=== PATIENT | female | born 1995 | race African-American/Black ===

== ENCOUNTER 2017-05-27 12:20 | Emergency (ER) | payer OTHER, SELFPAY ==
[2017-05-27] MEDS ORDERED: Oxymetazoline HCl 0.05% ( 15 ML ) ONE (12:32)
[2017-05-27 13:30] LABS: #Eosinphils 0.1 thou/uL (0.0-0.7); #Lymphocytes 1.8 thou/uL (1.20-3.40); #Monocytes 0.6 thou/uL (0.11-0.59); #Neutrophils 6.8 thou/uL (1.40-6.50); %Basophils 0.1 % (0.0-1.0); %Eosinophils 0.7 % (0.0-10.0); %Lymphocytes 19.4 % (28.0-48.0); %Monocytes 5.9 % (0.0-4.0); %Neutrophils 73.8 % (31.0-61.0); Hemoglobin 11.6 g/dL (12.0-16.0); Mean Corpuscular Volume 88.2 fl (77.0-87.0); Mean Platelet Volume 7.7 fL (7.4-10.4); Platelet Count 234 thou/uL (130-400); RBC Distribution Width 13.4 % (11.5-14.5); Red Blood Cell (RBC) Count 3.87 mill/uL (4.00-5.20); White Blood Cell (WBC) Count 9.2 thou/uL (4.8-10.8)
[2017-05-27 13:56] LABS: Bilirubin Negative (Negative); Blood, Urine Negative (Negative); Clarity CLOUDY (Clear); Glucose, Urine (Dipstick) Negative (Negative); Leukocyte Moderate (Negative); Nitrite Negative (Negative); Protein, Urine (Dipstick) Negative (Neg-Trace); Specific Gravity, Urine 1.016 (1.002-1.036); pH, Urine 7.5 (5.0-9.0)
[2017-05-27 13:58] LABS: ALT (SGPT) 20 U/L (8-55); AST (SGOT) 17 U/L (5-34); Albumin 3.3 g/dL (3.5-5.0); Alkaline Phosphatase 104 U/L (40-150); Anion Gap 10 mmol/L (10-20); BUN (Urea Nitrogen) 7 mg/dL (7.0-18.7); Bilirubin, Total 0.3 mg/dL (0.2-1.2); Calc. Creatinine Clearance 0 mL/min (70-130); Calcium 8.9 mg/dL (7.8-10.44); Carbon Dioxide 22 mmol/L (22-29); Chloride 105 mmol/L (98-107); Estimated GFR-MDRD Greater than 90; Globulin 3.4 g/dL (2.4-3.5); Glucose 88 mg/dL (70-105); Potassium 3.9 mmol/L (3.5-5.1); Protein, Total 6.7 g/dL (6.0-8.3); Sodium 133 mmol/L (136-145)
[2017-05-27 14:09] LABS: Bacteria/HPF 2+ HPF (None Seen); Hyaline Casts/LPF 0-3 HYALINE CAST LPF (0-3 Hyaline); Pathc Cast-AUWi Flag 0.29 (0-2.49); RBC/HPF 0-3 HPF (0-3); Squamous Epithelial 21-50 HPF (0-3)
[2017-05-27] MEDS ORDERED: levETIRAcetam 500 MG TAB PO SCH (15:00)
== END 2017-05-27 15:21 | disposition home or self-care (01) ==
LOC: ERS 12:20
DX: O99.352 Diseases of the nervous system complicating pregnancy, second trimester (principal); G40.909 Epilepsy, unspecified, not intractable, without status epilepticus; R82.71 Bacteriuria; O99.512 Diseases of the respiratory system complicating pregnancy, second trimester; J45.909 Unspecified asthma, uncomplicated; O99.342 Other mental disorders complicating pregnancy, second trimester; F41.9 Anxiety disorder, unspecified; Z3A.23 23 weeks gestation of pregnancy
CPT/HCPCS: 36415; 80053; 81003; 81015; 85025; 87086; 93005

== ENCOUNTER 2017-07-19 10:54 | Day surgery (SDC) | payer OTHER ==
[2017-07-19 11:36] VITALS: BMI 35.2
[2017-07-19 12:35] LABS: Bilirubin Negative (Negative); Blood, Urine Negative (Negative); Clarity CLEAR (Clear); Glucose, Urine (Dipstick) Negative (Negative); Leukocyte Trace (Negative); Nitrite Negative (Negative); Protein, Urine (Dipstick) 300 mg/dL (Neg-Trace); Specific Gravity, Urine 1.019 (1.002-1.036); pH, Urine 6.5 (5.0-9.0)
[2017-07-19 12:38] LABS: Bacteria/HPF None Seen HPF (None Seen); Pathc Cast-AUWi Flag 1.88 (0-2.49); RBC/HPF 0-3 HPF (0-3)
[2017-07-19 12:50] LABS: Hyaline Casts/LPF 0-3 HYALINE CAST LPF (0-3 Hyaline); Renal Epithelial None Seen HPF (0-3); Transitional Epithelial NONE SEEN HPF (0-3)
--- NOTE | 2017-07-19 19:20 | PRG ---
DATE OF SERVICE: 07/19/2017 OBSTETRIC EMERGENCY ROOM ENCOUNTER PRIMARY CONCESSION CASHIER: Lei Norton M.D. CHIEF COMPLAINT: Abdominal pains, nausea, vomiting, diarrhea. HISTORY OF PRESENT ILLNESS: The patient is a 21-year-old female with an intrauterine at 31 weeks and 2 days, followed by Dr. Norton who presented by EMS from her employment with abdomin al pains that she had been feeling since midnight along with upper thigh pain and lower back pain. T he patient reports that she also has been experiencing much of this pain she has been experiencing is associated with movement and activity and says that she has been feeling tightening in her belly and in her back about once every 20-30 minutes at work, she felt a really strong pain which prompted her to come. The patient reports that she has been having leakage of fluid off and on, it is clear. Fi rst, she thought it was from her bladder. She denies any vaginal bleeding. She denies any unusual d ischarge apart from the leaking fluid that she says as scant and small amounts. She feels her baby m oving. She reports that yesterday that she had 3 episodes of diarrhea and vomited after she ate some thing and has since done fine without any continued episodes. The patient denies chest pain, shortne ss of breath, heartburn, dizziness, visual disturbances, epigastric pain, or dysuria or other urinary problems. The patient denies any seizure activity since her last ER visit in May. She reports th at she does not take her Keppra on a regular basis. In fact, she reports that she has not seen a ap rologist yet. Her primary OB had referred her to Dr. Chatterjee's office. The patient has a longstandi ng history of epilepsy. The patient reports good movement. PAST MEDICAL HISTORY: 1. Seizure disorder since age 17. 2. Anxiety. PAST SURGICAL HISTORY: Negative. SOCIAL HISTORY: Denies drug, alcohol or tobacco use. CURRENT MEDICATIONS: Keppra p.r.n. and vitamins. ALLERGIES: No known drug allergies. OBSTETRIC LABORATORY DATA: Unavailable. REVIEW OF SYSTEMS: Per HPI. PHYSICAL EXAMINATION: VITAL SIGNS: Blood pressure 125/85, pulse of 69, respiratory rate 18, temperature 99.0. GENERAL: She appears to be in no acute distress. She is alert and oriented, cooperative and pleasan t to interact with. HEENT: Normocephalic, atraumatic. CHEST: Clear to auscultation bilaterally. HEART: Regular rate and rhythm. ABDOMEN: Obese and gravid, soft. She does have some tenderness with deviation of the uterus, partic ularly on the left side, has no suprapubic tenderness. She has some SI joint tenderness to palpation , possible CVA tenderness, but appears to be more on the SI joint region. The patient has symmetrica l 1+ edema bilaterally. PELVIC: Vulva is without masses, lesions or erythema. Vagina is moist with a thick adherent vaginal discharge. Otherwise, no lesions. Cervix on digital exam is closed and thick. LABORATORY DATA: RN CHEMICAL DEPENDENCY-3 was positive for Izabel, negative for trich or Gardnerella. A UA is signific ant with a 300 mg per deciliter protein, otherwise no other evidence of abnormalities. No nitrites, has trace leukocyte esterase, but multiple squames. heart tracing demonstrates a baseline in t he 140s with moderate long-term variability, positive 10/10 accelerations. Bedside ultrasound shows an BETSY of about 10 cm. ASSESSMENT AND PLAN: The patient has an intrauterine at 31 weeks and 2 days, presenting wi th primarily musculoskeletal pains and newly diagnosed proteinuria and a yeast infection. The patien t has been given a script for Diflucan 150 mg to be taken 1 now and 1 in the week. She has also been given instructions on how to collect a 24-hour urine for protein. She has been counseled to take tw o Tylenol 3 times a day for the next several days to see if this will help with her musculoskeletal p ains. She is following with Dr. Norton later this afternoon. I have contacted him myself to inform him of this 24-hour urine collection.
== END 2017-07-19 13:55 | disposition home or self-care (01) ==
LOC: L&D/OP 10:54
PROVIDERS: ATTEND Obstetrics & Gynecology
DX: O99.89 Other specified diseases and conditions complicating pregnancy, childbirth and the puerperium (principal); R10.9 Unspecified abdominal pain; M54.5 Low back pain; M79.659 Pain in unspecified thigh; N89.8 Other specified noninflammatory disorders of vagina; R19.7 Diarrhea, unspecified; O99.353 Diseases of the nervous system complicating pregnancy, third trimester; G40.909 Epilepsy, unspecified, not intractable, without status epilepticus; O99.343 Other mental disorders complicating pregnancy, third trimester; F41.9 Anxiety disorder, unspecified; O98.813 Other maternal infectious and parasitic diseases complicating pregnancy, third trimester; B37.9 Candidiasis, unspecified; O12.13 Gestational proteinuria, third trimester; Z3A.31 31 weeks gestation of pregnancy; Z79.899 Other long term (current) drug therapy
CPT/HCPCS: 51701; 76815; 81003; 81015; 87480; 87510; 87660; 99285; A4353

== ENCOUNTER 2018-07-07 00:37 | Emergency (ER) | payer OTHER, SELFPAY ==
[2018-07-07 00:59] LABS: Bilirubin Negative (Negative); Blood, Urine Negative (Negative); Clarity CLEAR (Clear); Glucose, Urine (Dipstick) Negative (Negative); Leukocyte Negative (Negative); Nitrite Negative (Negative); Pregnancy Test - Urine (BHCG) POSITIVE (Negative); Protein, Urine (Dipstick) Negative (Neg-Trace); pH, Urine 6.5 (5.0-9.0)
[2018-07-07 01:00] LABS: Pregu Control Background? CLEAR/WHITE (CLR/WHITE); Pregu Control Bar Appear? YES (CONTROL BAR)
[2018-07-07 01:01] LABS: #Monocytes 0.7 thou/uL (0.11-0.59); %Basophils 0.5 % (0.0-1.0); %Eosinophils 0.4 % (0.0-10.0); %Lymphocytes 30.5 % (21.0-51.0); %Monocytes 6.9 % (0.0-10.0); %Neutrophils 61.7 % (42.0-75.0); Hemoglobin 9.2 g/dL (12.0-16.0); Mean Corpuscular HGB CONC 32.5 g/dL (32.0-36.0); Mean Corpuscular Hemoglobin 25.3 pg (27.0-31.0); Mean Corpuscular Volume 77.8 fL (78.0-98.0); Mean Platelet Volume 8.5 fL (7.4-10.4); Platelet Count 321 thou/uL (130-400); RBC Distribution Width 18.1 % (11.5-14.5); Red Blood Cell (RBC) Count 3.63 mill/uL (4.20-5.40); White Blood Cell (WBC) Count 9.8 thou/uL (4.8-10.8)
[2018-07-07 01:21] LABS: ALT (SGPT) 14 U/L (8-55); AST (SGOT) 11 U/L (5-34); Albumin 3.8 g/dL (3.5-5.0); Alkaline Phosphatase 72 U/L (40-150); Anion Gap 12 mmol/L (10-20); BUN (Urea Nitrogen) 9 mg/dL (7.0-18.7); Bilirubin, Total 0.2 mg/dL (0.2-1.2); Calc. Creatinine Clearance 0 mL/min (70-130); Calcium 9.3 mg/dL (7.8-10.44); Carbon Dioxide 24 mmol/L (22-29); Chloride 107 mmol/L (98-107); Estimated GFR-MDRD Greater than 90; Globulin 3.1 g/dL (2.4-3.5); Glucose 92 mg/dL (70-105); Potassium 3.8 mmol/L (3.5-5.1); Protein, Total 6.9 g/dL (6.0-8.3); Sodium 139 mmol/L (136-145)
--- NOTE | 2018-07-07 07:09 | ULT ---
ULTRASOUND PELVIS TRANSVAGINAL WITH DOPPLER: Date: 07/07/18 INDICATION: , assess status. COMPARISON: None. TECHNIQUE: Hay scale, color flow, and spectral Doppler were obtained of the pelvis via transvaginal and transab dominal approach. FINDINGS: There is a single intrauterine gestational sac with a mean sac diameter of 0.54 cm. There is a pole demonstrated with crown-rump length of 2.6 mm. No definite cardiac activity is noted. The average gestational age by ultrasound is 5 weeks/4 days. Estimated due date is 03/05/2019. Yolk s ac measures 1.9 mm. There bilateral mildly complex cysts. The right ovary measures 4.6 x 4.1 x 5.8 cm. The left ovary zoila sures 3.2 x 1.5 x 3.0 cm. The uterus measures 8.3 x 5.0 x 5.8 cm. There is mild free fluid in the pel vis. IMPRESSION: 1. Single intrauterine gestation sac with a yolk sac and pole identified. No cardiac activity is evident. Findings are most consistent with an early on undetermined viability. 2. Mild free fluid in the pelvis. 3. Mildly complex bilateral ovarian cysts. POS: [facility]
== END 2018-07-07 05:09 | disposition home or self-care (01) ==
LOC: ERS 00:37
DX: O99.89 Other specified diseases and conditions complicating pregnancy, childbirth and the puerperium (principal); R10.30 Lower abdominal pain, unspecified; O34.81 Maternal care for other abnormalities of pelvic organs, first trimester; N83.202 Unspecified ovarian cyst, left side; N83.201 Unspecified ovarian cyst, right side; O99.341 Other mental disorders complicating pregnancy, first trimester; F41.9 Anxiety disorder, unspecified; O99.351 Diseases of the nervous system complicating pregnancy, first trimester; G40.909 Epilepsy, unspecified, not intractable, without status epilepticus; Z79.899 Other long term (current) drug therapy; Z3A.01 Less than 8 weeks gestation of pregnancy
CPT/HCPCS: 36415; 76856; 80053; 81003; 81025; 83690; 84702; 85025; 86900; 86901

== ENCOUNTER 2019-02-06 17:22 | Day surgery (SDC) | payer OTHER ==
[2019-02-06 17:36] VITALS: BMI 37.8
[2019-02-06] MEDS ORDERED: FLU VACC QS2019-20(6MOS UP)/PF 60 MCG/0.5 ML SYRINGE IM ONE (17:40)
[2019-02-06] MEDS ORDERED: hydrALAZINE 20 MG/ML VIAL SLOW IVP PRN (18:06)
[2019-02-06] MEDS ORDERED: Ondansetron PF 4 MG/2 ML Vial IVP SCH (18:15)
[2019-02-06] MEDS: Sodium Chloride 0.9% 2,000 ML IV SCH ×2 (18:32→20:01)
[2019-02-06 18:54] LABS: Anion Gap 8 mmol/L (10-20); BUN (Urea Nitrogen) 4 mg/dL (7.0-18.7); Calc. Creatinine Clearance 186 mL/min (70-130); Calcium 8.5 mg/dL (7.8-10.44); Carbon Dioxide 25 mmol/L (22-29); Chloride 108 mmol/L (98-107); Estimated GFR-MDRD Greater than 90; Glucose 82 mg/dL (70-105); Sodium 137 mmol/L (136-145)
--- NOTE | 2019-02-06 18:56 | PRG ---
DATE OF SERVICE: 02/06/2019 PRIMARY OB: Dr. Lei Norton. CHIEF COMPLAINT: Abdominal pain. HISTORY OF PRESENT ILLNESS: The patient is a 23-year-old G2, P1 female with an intrauterine at 36 weeks and a day, presenting to Labor and Delivery with complaints of uterine contractions since about 3:30 today. The patient reports she has had a several-day history of diarrhea and vomiting. She has not been able to keep anything down. She says she has about 4 or 5 episodes of each day. The patient reports today she has only had one episode of diarrhea so far. She denies any fever. She does report headaches. Denies chest pain. She reports some shortness of breath. Denies diarrhea, vomiting, or nausea. Denies any new rashes. Reports hip problems, . Denies any muscle weakness. Denies vaginal bleeding or leakage of fluid or urinary urgency. The patient reports she is scheduled for repeat on the 26 of February. PAST MEDICAL HISTORY: History of epilepsy, off medication. PAST SURGICAL HISTORY: One prior . ALLERGIES: NO KNOWN DRUG ALLERGIES. MEDICATIONS: vitamins. SOCIAL HISTORY: Denies drug, alcohol, or tobacco use. OB LABS: Blood type is B positive. Antibody screen is negative. Hepatitis B surface antigen is nonreactive in the first trimester. HIV nonreactive in the first trimester, but Chlamydia positive in the first trimester. Gonorrhea negative. Diabetes screen of 97. I do not have her third trimester labs or her followup test to cure for the Chlamydia. REVIEW OF SYSTEMS: Per HPI. PHYSICAL EXAMINATION: VITAL SIGNS: Blood pressure is 98/63, heart rate of 92, respiratory rate 16, and temperature 98.5. GENERAL: She appears to be in no acute distress. She is alert, oriented, cooperative, and pleasant to interact with. HEENT: Head is normocephalic, atraumatic. LUNGS: Clear to auscultation bilaterally. HEART: Has regular rate and rhythm. ABDOMEN: Soft, gravid, obese. Nontender. EXTREMITIES: Nontender, nonedematous. CERVICAL: She has one thick and high. heart tracing shows the fetus shows a baseline in the 140s with moderate long-term variability, positive 15 x 15 accelerations. Contractions appear to be about every 2 to 6 minutes. LABORATORY DATA: BMP is pending. IV is in place. ASSESSMENT AND PLAN: The patient is a 23-year-old G2, P1 female with an intrauterine at 36 weeks and a day, coming in with what by history sounds like nausea and vomiting, felt maybe a gastroenteritis, followed by resulting in dehydration and contractions and headache, will be given the patient IV fluids. Get a BMP, and we will re-evaluate. Should the patient be in labor, which at the moment does not appear to be the case. Plan will be a repeat . We will follow up with labs and as indicated. Job ID: [id number]
== END 2019-02-06 21:02 | disposition home or self-care (01) ==
LOC: L&D/OP 17:22
PROVIDERS: ATTEND Obstetrics & Gynecology
DX: O47.03 False labor before 37 completed weeks of gestation, third trimester (principal); O99.89 Other specified diseases and conditions complicating pregnancy, childbirth and the puerperium; R19.7 Diarrhea, unspecified; R51 Headache; O99.283 Endocrine, nutritional and metabolic diseases complicating pregnancy, third trimester; E86.0 Dehydration; O21.2 Late vomiting of pregnancy; Z3A.36 36 weeks gestation of pregnancy
CPT/HCPCS: 36415; 80048; J2405

== ENCOUNTER 2019-02-13 22:04 | Day surgery (SDC) | payer OTHER ==
[2019-02-13 22:42] VITALS: BMI 39.0
[2019-02-13 22:43] VITALS: BP 113/76
[2019-02-13 22:43] LABS: Amnisure Internal Control QC ACCEPTABLE (ACCEPTABLE)
[2019-02-13 22:52] LABS: Amnisure Test No Membranes Rupture (No Rupture)
[2019-02-13] MEDS ORDERED: hydrALAZINE 20 MG/ML VIAL SLOW IVP PRN (23:02)
[2019-02-13] MEDS ORDERED: Promethazine HCl 25 MG/ML VIAL IM/IV PRN (23:04)
[2019-02-13] MEDS ORDERED: Lactated Ringer's 1,000 ML IV SCH (23:15)
--- NOTE | 2019-02-13 23:38 | PRG ---
DATE OF SERVICE: 02/13/2019 TIME OF SERVICE: 2305. PRESENTING COMPLAINTS: Nausea, vomiting, possible rupture of membranes and contractions at 37 weeks gestation. HISTORY OF PRESENT ILLNESS: Ms. Wu is a 23-year-old, G2, P1, EDC 03/05, scheduled repeat 02/26, who sees Dr. Norton. She reports this afternoon. She has had some nausea and vomiting. She also reports possible leakage of fluid and contractions. 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 No evidence of preeclampsia in this . Blood type B positive, antibody negative. Pap negative. Rubella immune. VDRL nonreactive. Hepatitis B, GC, chlamydia negative. Group B strep reflected is negative in Dr. Norton's record. The patient had positive chlamydia in July and it was treated with Zithromax. PAST MEDICAL HISTORY: None. PAST SURGICAL HISTORY: . ALLERGIES: DENIES. MEDICATIONS: vitamins. SOCIAL HISTORY: Denies tobacco, alcohol, or IV drug use. FAMILY HISTORY: Noncontributory. REVIEW OF SYSTEMS: Noncontributory. PHYSICAL EXAMINATION: VITAL SIGNS: Black female, blood pressure 128/72, pulse 85, respirations 18, afebrile. HEENT: Within normal limits. LUNGS: Auscultation bilaterally. HEART: Regular rate and rhythm. ABDOMEN: Soft, nontender. She has occasional indentible contractions, category 1 heart rate tracing baseline 130s. Vaginal exam revealed no pooling fluid. Cervix was one, long and high. EXTREMITIES: No clubbing, cyanosis, or edema. AmniSure was performed and was negative. The patient seemed to tolerate a p.o. hydration. Decision was made to bolus LR and administer Phenergan. We will do straight cath urinalysis with possible reflex, micro, and evaluate the results. Anticipate that after 1 to 2 L of IV fluids, the patient will be okay for discharge home, but we will dictate addendum. Job ID: [id number]
[2019-02-13 23:48] LABS: Bacteria/HPF None Seen HPF (None Seen); Bilirubin Negative (Negative); Blood, Urine Negative (Negative); Clarity Clear (Clear); Glucose, Urine (Dipstick) Normal (Negative); Leukocyte Negative Leu/uL (Negative); Nitrite Negative (Negative); Protein, Urine (Dipstick) Negative (Neg-Trace); RBC/HPF 0-3 HPF (0-3); Squamous Epithelial 0-3 HPF (0-3); Urobilinogen Normal mg/dL (Less than 2); WBC/HPF 0-3 HPF (0-3)
[2019-02-13 23:50] LABS: Urine Culture Reflex No No
[2019-02-14] MEDS ORDERED: Lactated Ringer's 1,000 ML IV SCH (00:15)
--- NOTE | 2019-02-14 02:32 | PRG ---
DATE OF SERVICE: 02/14/2019 Ms. Wu has been observed for greater than 2 hours. She has no contractions. She feels better. Urinalysis revealed negative ketones and was completely unremarkable. heart rate tracing has been unremarkable as well. IMPRESSION: Discomforts, prior section, early third trimester, no evidence active labor. PLAN: Discharge home, keep scheduled, followup with Dr. Norton, ER precautions. Job ID: [id number]
[2019-02-14] MEDS ORDERED: FLU VACC QS2019-20(6MOS UP)/PF 60 MCG/0.5 ML SYRINGE IM ONE (09:00)
== END 2019-02-14 02:22 | disposition home or self-care (01) ==
LOC: L&D/OP 22:04
PROVIDERS: ATTEND Obstetrics & Gynecology
DX: O47.1 False labor at or after 37 completed weeks of gestation (principal); O21.2 Late vomiting of pregnancy; O26.893 Other specified pregnancy related conditions, third trimester; N89.8 Other specified noninflammatory disorders of vagina; O34.219 Maternal care for unspecified type scar from previous cesarean delivery; Z3A.37 37 weeks gestation of pregnancy
CPT/HCPCS: 81001; 84112; A4353; J2550

== ENCOUNTER 2019-02-26 03:02 | Inpatient (IN) | payer OTHER ==
--- NOTE | 2019-02-25 22:10 | PDOC.LDHP ---
Labor and Delivery H&P HPI: 23 y/o at 39 weeks presents for scheduled 2nd (repeat) . Due date: 03/05/19 Grav: 2 Para: 1 Current complications: other (Obsesity) Abnormal US findings: No Current medications: pre-elda vitamins Previous surgical history: low tranverse CS Allergies/Adverse Reactions: Allergies Allergy/AdvReac Type Severity Reaction Status Date / Time No Known Allergies Allergy Verified 02/13/19 22:41 Social history: none - Physical Exam Vital signs reviewed and normal: yes General: NAD Heart: RRR Lungs: CTAB Abdomen: gravid Extremeties: no edema FHT: category 1 - Assessment L&D Assessment: scheduled repeat section - Plan Plan: admit to L&D, to OR for section
[~2019-02-26 03:02] MED LIST: Bicitra 30 ML UDCUP PO SCH; Ondansetron PF 4 MG/2 ML Vial IVP PRN; Promethazine HCl 25 MG/ML VIAL IM PRN; hydrALAZINE 20 MG/ML VIAL SLOW IVP PRN
[2019-02-26] MEDS: Lactated Ringer's 1,000 ML IV SCH ×4 (11:35→22:33)
[2019-02-26 11:49] VITALS: BMI 38.5
[2019-02-26] MEDS ORDERED: Bicitra 30 ML UDCUP ONE (11:57)
[2019-02-26] MEDS ORDERED: CEFAZOLIN 2 GM in Premix Bag 1 BAG IVPB SCH (12:00)
[2019-02-26] MEDS ORDERED: Oxytocin 10 UNITS/ML VIAL ONE (12:18)
[2019-02-26] MEDS ORDERED: PHENYLEPHRINE-NS 100 MCG/ML 10 ML SYRINGE ONE (12:18)
[2019-02-26] MEDS ORDERED: MORPHINE 5 MG/10 ML PF VIAL ONE (12:18)
[2019-02-26 12:19] LABS: Hemoglobin 8.2 g/dL (12.0-16.0); Mean Corpuscular HGB CONC 31.8 g/dL (32.0-36.0); Mean Corpuscular Hemoglobin 22.3 pg (27.0-31.0); Mean Corpuscular Volume 70.1 fL (78.0-98.0); Platelet Count 342 thou/uL (130-400); RBC Distribution Width 17.5 % (11.5-14.5); Red Blood Cell (RBC) Count 3.66 mill/uL (4.20-5.40); White Blood Cell (WBC) Count 10.3 thou/uL (4.8-10.8)
[2019-02-26 12:48] LABS: HBSAg Index 0.33 S/CO (0-0.99); Hep B Surf Ag Non-Reactive S/CO (NonReactive)
[2019-02-26 12:50] LABS: Syphilis Antibody Nonreactive (Nonreactive); Syphilis Antibody Index 0.04 S/CO (<1.00 Non-Reactive)
[2019-02-26] MEDS ORDERED: HYDROmorphone 2 MG/ML VIAL SLOW IVP PRN (12:53)
[2019-02-26] MEDS ORDERED: L&D-Morphine 4 MG/ML VIAL SLOW IVP PRN (12:53)
[2019-02-26] MEDS ORDERED: Meperidine HCl/PF 25 MG/ML VIAL SLOW IVP PRN (12:53)
[2019-02-26] MEDS ORDERED: Ondansetron HCl/PF 4 MG/2 ML Vial IVP PRN (12:53)
[2019-02-26] MEDS ORDERED: diphenhydrAMINE 50 MG/ML VIAL IVP PRN (12:54)
[2019-02-26] MEDS ORDERED: Naloxone HCl 0.4 mg/ml Vial IVP PRN ×2 (12:54)
[2019-02-26] MEDS ORDERED: Ondansetron PF 4 MG/2 ML Vial IVP PRN ×3 (12:54→17:49)
[2019-02-26] MEDS ORDERED: Promethazine HCl 25 MG SUPP PR PRN (12:54)
[2019-02-26] MEDS ORDERED: Promethazine HCl 25 MG/ML VIAL IM PRN ×2 (12:54→14:09)
[2019-02-26] MEDS ORDERED: Naloxone HCl 0.4 mg/ml Vial IV PRN ×2 (12:54→14:09)
[2019-02-26] MEDS ORDERED: Ketorolac Tromethamine 30 MG/ML VIAL IVP PRN (12:54)
[2019-02-26] MEDS ORDERED: Ketorolac Tromethamine 30 MG/ML VIAL IVP SCH (13:00)
[2019-02-26] MEDS ORDERED: FLU VACC QS2019-20(6MOS UP)/PF 60 MCG/0.5 ML SYRINGE IM ONE (13:00)
[2019-02-26] MEDS ORDERED: Communication Order-Pharmacy FS SCH ×2 (13:00→14:15)
[2019-02-26] MEDS ORDERED: Lidocaine 1% (PF) 30 ML VIAL ONE (13:14)
[2019-02-26] MEDS ORDERED: Succinylcholine Chloride 20 MG/ML 10 ml SYRINGE FS ONE (13:41)
[2019-02-26] MEDS ORDERED: Fentanyl 250 MCG/5 ML VIAL ONE (13:41)
[2019-02-26] MEDS ORDERED: PROPOFOL 20 ML ONE ×2 (13:41→14:18)
[2019-02-26] MEDS ORDERED: Zolpidem Tartrate 5 MG TAB PO PRN ×2 (14:09→17:49)
[2019-02-26] MEDS ORDERED: diphenhydrAMINE 25 MG CAP PO PRN ×2 (14:09→17:49)
[2019-02-26] MEDS ORDERED: fentaNYL Citrate/PF 2,000 MCG in Sodium Chloride 0.9% 60 ML IV PRN (14:09)
[2019-02-26] MEDS ORDERED: diphenhydrAMINE 50 MG/ML VIAL IM PRN (14:09)
[2019-02-26] MEDS ORDERED: Dexamethasone 4 mg/ml Vial ONE (14:14)
[2019-02-26] MEDS ORDERED: Ketorolac Tromethamine 30 MG/ML VIAL ONE (14:14)
[2019-02-26] MEDS ORDERED: Ondansetron PF 4 MG/2 ML Vial ONE (14:14)
[2019-02-26] MEDS ORDERED: diphenhydrAMINE 50 MG/ML VIAL ONE (17:15)
[2019-02-26] MEDS: diphenhydrAMINE 50 MG/ML VIAL IVP PRN (17:20)
[2019-02-26] MEDS ORDERED: hydrALAZINE 20 MG/ML VIAL SLOW IVP PRN (17:49)
[2019-02-26] MEDS ORDERED: Lanolin Ointment 7 GM TUBE TOP PRN (17:49)
[2019-02-26] MEDS ORDERED: HYDROcodone/Acetaminophen 5/325 mg Tablet PO PRN (17:49)
[2019-02-26] MEDS ORDERED: Methylergonovine 0.2 MG/ML VIAL IM PRN (17:49)
[2019-02-26] MEDS ORDERED: Bisacodyl 10 MG SUPP PR PRN (17:49)
[2019-02-26] MEDS ORDERED: NS / Oxytocin 40 units/1000ml 1,000 ML IV SCH (17:49)
[2019-02-26] MEDS: Docusate Calcium (SURFAK) 240 MG CAP PO SCH (22:34)
[2019-02-26] MEDS: Simethicone Chewable 80 MG TAB PO PRN (22:34)
[2019-02-27] MEDS: diphenhydrAMINE 50 MG/ML VIAL IVP PRN (01:03)
[2019-02-27] MEDS ORDERED: Measles/Mumps/Rubella 10 MCG/0.5 ML VIAL SC ONE (09:00)
[2019-02-27] MEDS ORDERED: Varicella virus, LIVE 0.5 ML VIAL SC ONE (09:00)
[2019-02-27] MEDS ORDERED: Adacel (T-DAP) 0.5 ML SYRINGE IM ONE (09:00)
[2019-02-27] MEDS: Docusate Calcium (SURFAK) 240 MG CAP PO SCH ×2 (09:24→22:15)
[2019-02-27] MEDS: Prenatal Vitamin 1 TAB PO SCH (09:24)
[2019-02-27] MEDS: Simethicone Chewable 80 MG TAB PO PRN (09:25)
[2019-02-27] MEDS: HYDROcodone/Acetaminophen 5/325 mg Tablet PO PRN (19:33)
[2019-02-27] MEDS: Ibuprofen 800 MG TAB PO SCH (22:16)
[2019-02-28] MEDS: Ibuprofen 800 MG TAB PO SCH ×3 (00:03→21:37)
[2019-02-28] MEDS: Docusate Calcium (SURFAK) 240 MG CAP PO SCH ×3 (00:03→21:37)
[2019-02-28] MEDS: Simethicone Chewable 80 MG TAB PO PRN ×2 (00:04→20:33)
[2019-02-28] MEDS: Prenatal Vitamin 1 TAB PO SCH (09:31)
[2019-02-28] MEDS: HYDROcodone/Acetaminophen 5/325 mg Tablet PO PRN (20:32)
--- NOTE | 2019-03-01 01:52 | OP ---
DATE OF PROCEDURE: 02/26/2019 TIME: 1356 Central Standard Time. PREOPERATIVE DIAGNOSIS: Intrauterine at 39 weeks with a history of preeclampsia and desired repeat section. POSTOPERATIVE DIAGNOSIS: Intrauterine at 39 weeks with a history of preeclampsia and desired repeat section. PROCEDURE PERFORMED: Repeat low transverse section. ANESTHESIA: General after the failure of spinal placement. ANESTHESIOLOGIST: Antoni Sharma MD FINDINGS: Viable male weighing 2948 g or 6 pounds 8 ounces, Apgars 8 and 9. ESTIMATED BLOOD LOSS: 700 mL. COMPLICATIONS: None. DETAILS OF THE PROCEDURE: The patient was consented and taken back to the operating room where spinal anesthesia was found to be adequate. She was then prepped and draped in the normal sterile fashion. A timeout was performed by the entire operative team. The incision was then marked with a marking pen tested using sharp pickups. An incision was then made with a scalpel. The incision was carried through the adipose tissue down to the underlying rectus fascia using both sharp dissection as well as cautery. Once the fascia was identified, it was incised in the midline and then the fascial incision was carried through in both lateral directions using sharp as well as cautery dissection techniques. Next, the superior aspect of the rectus fascia was grasped with 2 Xuan clamps, which was tented up and the rectus muscles were dissected off using blunt dissection as well as cautery dissection. Similarly, the inferior aspect of the fascial incision was grasped with 2 Xuan clamps, tented up and the rectus muscles were dissected off bluntly as well as sharply. Next, the rectus muscles were in the midline and the peritoneum identified. The peritoneum was then carefully grasped with 2 hemostats and entered sharply. The peritoneal incision was extended superiorly and inferiorly and bladder blade was placed in the lower abdomen. At this point, the uterus was identified and the bladder flap was then developed using pickups with teeth as well as Metzenbaum scissors in both lateral directions. The bladder flap was then dissected downwards using the swing saw operator's finger as well as Metzenbaum scissors. The bladder blade was replaced. The lower uterine segment was then identified and entered sharply using a clean scalpel. The uterine incision was then dissected downwards until thin layer of muscle remained and this was entered bluntly using a hemostat to avoid any injury to the baby. The uterine incision was then stretched using two fingers in both lateral directions. An amniotomy was performed artificially using a hemostat and the baby was delivered using fundal pressure in a gentle fashion. Once out, the baby's mouth and nose were bulb suctioned, cord clamped and cut, and the baby was handed to waiting attendants. Next, the uterus was exteriorized, cleared of all clots and debris and the uterine incision was repaired with #1 Monocryl in a running locking fashion. A 2nd suture of the same type was used to obtain complete hemostasis at the uterine incision. The bladder flap was reapproximated using 3-0 Monocryl. Next, patient's left and right adnexa were inspected and appeared to be within normal limits. The posterior cul-de-sac was blotted dry and hemostasis assured. One more look at the uterine incision demonstrated hemostasis. Next, the uterus was replaced back within the abdomen. The peritoneum was reapproximated using 2-0 Monocryl without difficulty. The rectus muscles were then allowed to come back together and 0 chromic was used to aid in reapproximation of the muscle as necessary. The rectus fascia was then reapproximated in a running fashion using 0 Vicryl suture. The adipose tissue was then examined and appeared to be well approximated without any obvious separations. Finally, the skin was reapproximated with 3-0 Monocryl on a Ahsan needle without difficulty and Dermabond adhesive was applied to the skin. Once the glue was dry, the drapes were removed and the patient was transferred to an ambulatory bed where she was taken to recovery awake and in stable condition. Sponge, lap, and needle counts were correct x3. Job ID: [id number]
[2019-03-01] MEDS: Ibuprofen 800 MG TAB PO SCH (06:21)
[2019-03-01 08:09] VITALS: BP 121/69; TEMP 98.4
[2019-03-01] MEDS: Docusate Calcium (SURFAK) 240 MG CAP PO SCH (08:15)
[2019-03-01] MEDS: Prenatal Vitamin 1 TAB PO SCH (08:15)
== END 2019-03-01 12:20 | disposition home or self-care (01) | DRG 788 ==
LOC: L&D 11:08 → 3SW 18:20
PROVIDERS: ADMIT Obstetrics & Gynecology; ATTEND Obstetrics & Gynecology
PROC: 10D00Z1 Extraction of Products of Conception, Low, Open Approach (ICD-10-PCS; principal; 2019-02-27)
DX: O34.211 Maternal care for low transverse scar from previous cesarean delivery (principal); O99.214 Obesity complicating childbirth; Z3A.39 39 weeks gestation of pregnancy; Z37.0 Single live birth; E66.9 Obesity, unspecified
CPT/HCPCS: 51702; 85027; 86780; 86850; 86900; 86901; 87340; J0690; J1100; J1200; J1885; J2001; J2274; J2405; J2590; J2704; J3010; J3490

== ENCOUNTER 2019-07-12 11:09 | Emergency (ER) | payer OTHER ==
[2019-07-12] MEDS ORDERED: Acetaminophen 500 MG TAB ONE (11:47)
[2019-07-12] MEDS ORDERED: Metoclopramide HCl 10 MG/2 ML VIAL ONE (11:47)
[2019-07-12 11:59] LABS: Bilirubin Negative (Negative); Blood, Urine Negative (Negative); Clarity Clear (Clear); Glucose, Urine (Dipstick) Normal (Negative); Leukocyte 500 Leu/uL (Negative); Nitrite Negative (Negative); Protein, Urine (Dipstick) Negative (Neg-Trace); Squamous Epithelial 0-3 HPF (0-3); Urobilinogen Normal mg/dL (Less than 2)
[2019-07-12 12:01] LABS: Bacteria/HPF 1+ HPF (None Seen)
--- NOTE | 2019-07-12 12:10 | RAD ---
CHEST 1 VIEW: HISTORY: Headache and diarrhea. COMPARISON: Radiograph from 2018. FINDINGS: Lungs are clear. No pneumothorax or effusion. Cardiac silhouette and mediastinal contours are withi n normal limits. No acute osseous abnormality. IMPRESSION: No acute intrathoracic abnormality. POS: [facility]
[2019-07-12 12:12] LABS: Hemoglobin 8.5 g/dL (12.0-16.0); Mean Corpuscular HGB CONC 30.5 g/dL (32.0-36.0); Mean Corpuscular Hemoglobin 20.7 pg (27.0-31.0); Mean Corpuscular Volume 68.1 fL (78.0-98.0); Platelet Count 288 thou/uL (130-400); RBC Distribution Width 19.1 % (11.5-14.5); Red Blood Cell (RBC) Count 4.08 mill/uL (4.20-5.40)
[2019-07-12 12:14] LABS: BHCG - Serum Negative (NEGATIVE); Pregs Control Background? CLEAR/WHITE (CLR/WHITE); Pregs Control Bar Appear? YES (CONTROL BAR)
[2019-07-12 12:16] LABS: ALT (SGPT) 14 U/L (8-55); AST (SGOT) 13 U/L (5-34); Albumin 4.1 g/dL (3.5-5.0); Alkaline Phosphatase 79 U/L (40-110); Anion Gap 10 mmol/L (10-20); BUN (Urea Nitrogen) 7 mg/dL (7.0-18.7); Bilirubin, Total 0.6 mg/dL (0.2-1.2); Calc. Creatinine Clearance 0 mL/min (70-130); Calcium 8.7 mg/dL (7.8-10.44); Carbon Dioxide 23 mmol/L (22-29); Chloride 105 mmol/L (98-107); Estimated GFR-MDRD Greater than 90; Globulin 3.5 g/dL (2.4-3.5); Glucose 100 mg/dL (70-105); Magnesium 1.8 mg/dL (1.6-2.6); Potassium 3.9 mmol/L (3.5-5.1); Protein, Total 7.6 g/dL (6.0-8.3); Sodium 134 mmol/L (136-145)
[2019-07-12 12:19] LABS: #Lymphocytes 1.2 thou/uL (1.20-3.40); #Monocytes 0.6 thou/uL (0.11-0.59); #Neutrophils 11.3 thou/uL (1.40-6.50); %Basophils 0.2 % (0.0-1.0); %Eosinophils 0.1 % (0.0-10.0); %Lymphocytes 9.1 % (21.0-51.0); %Monocytes 4.3 % (0.0-10.0); %Neutrophils 86.3 % (42.0-75.0)
[2019-07-12 12:40] LABS: Anisocytosis SLIGHT = 6-15 cells (100X) (0-5/hpf); Hypochromia SLIGHT = 6-15 cells (100X) (0-5/hpf); Large Platelets SLIGHT; MDiff Complete? YES; Microcytosis MODERATE=15-30 cells (100X) (0-5/hpf); Ovalocytes SLIGHT = 2-5 cells (100X) (0-1/hpf); Platelet Morphology Comment Appears Adequate; Polychromasia SLIGHT = 2-3 cells (100X) (0-2/hpf); Target Cells SLIGHT = 2-5 cells (100X) (0-1/hpf); Tear Drops SLIGHT = 2-5 cells (100X) (0-1/hpf)
[2019-07-12] MEDS ORDERED: Ketorolac Tromethamine 30 MG/ML VIAL ONE (13:31)
[2019-07-12 18:40] LABS: SARS-CoV-2 MS2 Positive; SARS-CoV-2 N Gene Negative; SARS-CoV-2 S Gene Negative; SARS-CoV-2 orf1ab Negative
== END 2019-07-12 13:55 | disposition home or self-care (01) ==
LOC: ERS 11:09
DX: N39.0 Urinary tract infection, site not specified (principal); R51 Headache; Z20.828 Contact with and (suspected) exposure to other viral communicable diseases; J45.909 Unspecified asthma, uncomplicated; F41.9 Anxiety disorder, unspecified
CPT/HCPCS: 36415; 71045; 80053; 81003; 81015; 83605; 83735; 84703; 85025; 87635; 87804; 96361; 96374; 96375; J1885; J2765; U0003

== ENCOUNTER 2019-09-11 12:58 | Emergency (ER) | payer OTHER | END 2019-09-11 14:14 | disposition home or self-care (01) | LOC: ERS 12:58 | DX: N75.1 Abscess of Bartholin's gland (principal); J45.909 Unspecified asthma, uncomplicated; G40.909 Epilepsy, unspecified, not intractable, without status epilepticus; F41.9 Anxiety disorder, unspecified; F31.9 Bipolar disorder, unspecified; Z79.899 Other long term (current) drug therapy | CPT/HCPCS: 99283 ==

== ENCOUNTER 2019-09-13 18:07 | Emergency (ER) | payer OTHER, SELFPAY ==
[2019-09-13] MEDS ORDERED: Lorazepam 2 MG/ML VIAL ONE (18:30)
[2019-09-13] MEDS ORDERED: Fentanyl 100 MCG/2 ML VIAL ONE (18:30)
[2019-09-13] MEDS ORDERED: Lidocaine 1% PF 5 ML VIAL ONE (18:38)
== END 2019-09-13 19:45 | disposition home or self-care (01) ==
LOC: ERS 18:07
DX: N75.1 Abscess of Bartholin's gland (principal); G40.909 Epilepsy, unspecified, not intractable, without status epilepticus; F41.9 Anxiety disorder, unspecified; Z79.899 Other long term (current) drug therapy
CPT/HCPCS: 56420; 96374; 96375; J2060; J3010

== ENCOUNTER 2019-10-12 17:18 | Emergency (ER) | payer OTHER ==
[2019-10-12] MEDS ORDERED: Ondansetron ODT 4 MG TAB ONE (17:57)
[2019-10-12 18:10] LABS: Bilirubin Negative (Negative); Blood, Urine Negative (Negative); Clarity Clear (Clear); Glucose, Urine (Dipstick) Normal (Negative); Ketone, Urine Negative (Negative); Leukocyte 500 Leu/uL (Negative); Nitrite Negative (Negative); Protein, Urine (Dipstick) 10 mg/dL (Neg-Trace); Specific Gravity, Urine 1.026 (1.002-1.036); Urobilinogen Normal mg/dL (Less than 2); pH, Urine 5.5 (5.0-9.0)
[2019-10-12 18:12] LABS: Pregnancy Test - Urine (BHCG) Negative (Negative); Pregu Control Background? CLEAR/WHITE (CLR/WHITE); Pregu Control Bar Appear? YES (CONTROL BAR); Specific Gravity 1.026 (1.002-1.036)
[2019-10-12 18:18] LABS: Bacteria/HPF 1+ HPF (None Seen); RBC/HPF 0-3 HPF (0-3)
[2019-10-12 18:19] LABS: Trichomonas/HPF Rare HPF (None Seen)
[2019-10-12] MEDS ORDERED: metroNIDAZOLE 500 MG/100 ML BAG ONE (18:39)
[2019-10-12] MEDS ORDERED: metroNIDAZOLE 250 MG TAB ONE (18:40)
== END 2019-10-12 19:22 | disposition home or self-care (01) ==
LOC: ERS 17:18
DX: A59.8 Trichomoniasis of other sites (principal); R11.2 Nausea with vomiting, unspecified; J45.909 Unspecified asthma, uncomplicated; F41.9 Anxiety disorder, unspecified; F31.9 Bipolar disorder, unspecified; G40.909 Epilepsy, unspecified, not intractable, without status epilepticus; Z79.899 Other long term (current) drug therapy
CPT/HCPCS: 81003; 81015; 81025; 87086; 99284; Q0162

== ENCOUNTER 2019-12-23 12:25 | Emergency (ER) | payer OTHER ==
[2019-12-23] MEDS ORDERED: Lidocaine 1% PF 5 ML VIAL ONE (13:40)
== END 2019-12-23 14:20 | disposition home or self-care (01) ==
LOC: ERS 12:25
DX: N75.0 Cyst of Bartholin's gland (principal); J45.909 Unspecified asthma, uncomplicated; G40.909 Epilepsy, unspecified, not intractable, without status epilepticus; F31.9 Bipolar disorder, unspecified; F41.9 Anxiety disorder, unspecified; Z79.899 Other long term (current) drug therapy
CPT/HCPCS: 10060

== ENCOUNTER 2020-01-25 22:44 | Emergency (ER) | payer OTHER ==
[2020-01-26] MEDS ORDERED: Lidocaine 1% (PF) 30 ML VIAL ONE (00:01)
== END 2020-01-26 00:43 | disposition home or self-care (01) ==
LOC: ERS 22:44
DX: N75.1 Abscess of Bartholin's gland (principal); J45.909 Unspecified asthma, uncomplicated; Z79.899 Other long term (current) drug therapy; G40.909 Epilepsy, unspecified, not intractable, without status epilepticus
CPT/HCPCS: 56420; J2001

== ENCOUNTER 2020-02-20 20:19 | Emergency (ER) | payer OTHER ==
[2020-02-20] MEDS ORDERED: Lidocaine 1% PF 5 ML VIAL ONE (23:07)
[2020-02-20] MEDS ORDERED: Lidocaine 1% w/Epinephrine 1:100K 20 ML VIAL ONE (23:08)
== END 2020-02-21 00:04 | disposition home or self-care (01) ==
LOC: ERS 20:19
DX: N75.1 Abscess of Bartholin's gland (principal); G40.909 Epilepsy, unspecified, not intractable, without status epilepticus
CPT/HCPCS: 56420

== ENCOUNTER 2020-02-27 10:38 | Emergency (ER) | payer OTHER ==
[2020-02-27] MEDS ORDERED: Metoclopramide HCl 10 MG/2 ML VIAL ONE (11:20)
[2020-02-27] MEDS ORDERED: diphenhydrAMINE 50 MG/ML VIAL ONE (11:20)
[2020-02-27 11:39] LABS: Hemoglobin 9.3 g/dL (12.0-16.0); Mean Corpuscular HGB CONC 30.5 g/dL (32.0-36.0); Mean Corpuscular Hemoglobin 20.9 pg (27.0-31.0); Mean Corpuscular Volume 68.5 fL (78.0-98.0); Mean Platelet Volume 6.1 fL (7.4-10.4); Platelet Count 238 thou/uL (130-400); RBC Distribution Width 21.3 % (11.5-14.5); Red Blood Cell (RBC) Count 4.45 mill/uL (4.20-5.40); White Blood Cell (WBC) Count 6.1 thou/uL (4.8-10.8)
[2020-02-27] MEDS ORDERED: Metoclopramide HCl 10 MG TAB ONE (11:41)
[2020-02-27 11:43] LABS: BHCG - Serum Negative (NEGATIVE); Pregs Control Background? CLEAR/WHITE (CLR/WHITE); Pregs Control Bar Appear? YES (CONTROL BAR)
[2020-02-27 11:50] LABS: Anion Gap 10 mmol/L (10-20); BUN (Urea Nitrogen) 8 mg/dL (7.0-18.7); Calc. Creatinine Clearance 0 mL/min (70-130); Carbon Dioxide 24 mmol/L (22-29); Chloride 103 mmol/L (98-107); Potassium 3.9 mmol/L (3.5-5.1); Sodium 133 mmol/L (136-145)
[2020-02-27 11:51] LABS: ALT (SGPT) 10 U/L (8-55); AST (SGOT) 12 U/L (5-34); Alkaline Phosphatase 79 U/L (40-110); Bilirubin, Total 0.4 mg/dL (0.2-1.2); Calcium 8.5 mg/dL (7.8-10.44); Globulin 3.8 g/dL (2.4-3.5); Glucose 102 mg/dL (70-105); Lipase 24 U/L (8-78); Protein, Total 7.8 g/dL (6.0-8.3)
[2020-02-27 12:05] LABS: Band 10 % (5-11); Hypochromia SLIGHT = 6-15 cells (100X) (0-5/hpf); Lymphocytes 20 % (21-51); MDiff Complete? YES; Microcytosis MODERATE=15-30 cells (100X) (0-5/hpf); Monocytes 17 % (0-10); Neutrophil 53 % (42-75); Platelet Morphology Comment Appears Adequate; Polychromasia SLIGHT = 2-3 cells (100X) (0-2/hpf)
[2020-02-27] MEDS ORDERED: Ketorolac Tromethamine 30 MG/ML VIAL ONE (12:23)
[2020-02-27 12:38] LABS: Bilirubin Negative (Negative); Blood, Urine Negative (Negative); Clarity Turbid (Clear); Glucose, Urine (Dipstick) Normal (Negative); Ketone, Urine Negative (Negative); Leukocyte 250 Leu/uL (Negative); Nitrite Negative (Negative); Protein, Urine (Dipstick) Negative (Neg-Trace); Specific Gravity, Urine 1.009 (1.002-1.036); Urobilinogen Normal mg/dL (Less than 2)
[2020-02-27 12:43] LABS: Bacteria/HPF 1+ HPF (None Seen)
== END 2020-02-27 13:02 | disposition home or self-care (01) ==
LOC: ERS 10:38
DX: N39.0 Urinary tract infection, site not specified (principal); G43.909 Migraine, unspecified, not intractable, without status migrainosus; J45.909 Unspecified asthma, uncomplicated; Z79.899 Other long term (current) drug therapy
CPT/HCPCS: 36415; 80053; 81003; 81015; 83690; 84703; 85025; 87086; 96374; J1200; J1885; J2765

== ENCOUNTER 2020-03-18 15:06 | Emergency (ER) | payer OTHER ==
--- NOTE | 2020-03-18 15:54 | RAD ---
LEFT ANKLE 3 VIEWS: HISTORY: Ankle pain and swelling. FINDINGS: Soft tissue swelling which is mainly around the lateral malleolus. No joint effusion or fracture. IMPRESSION: No evidence of fracture. POS: [facility]
== END 2020-03-18 16:09 | disposition home or self-care (01) ==
LOC: ERS 15:06
DX: S93.402A Sprain of unspecified ligament of left ankle, initial encounter (principal); J45.909 Unspecified asthma, uncomplicated; Z79.51 Long term (current) use of inhaled steroids; X50.9XXA Other and unspecified overexertion or strenuous movements or postures, initial encounter

== ENCOUNTER 2020-06-18 15:01 | Emergency (ER) | payer OTHER ==
[2020-06-18] MEDS ORDERED: Ondansetron ODT 4 MG TAB ONE (15:07)
[2020-06-18 16:16] LABS: Bilirubin Negative (Negative); Blood, Urine 3+ (Negative); Clarity Turbid (Clear); Glucose, Urine (Dipstick) Normal (Negative); Ketone, Urine Negative (Negative); Leukocyte 500 Leu/uL (Negative); Nitrite Negative (Negative); Pregnancy Test - Urine (BHCG) Negative (Negative); Pregu Control Background? CLEAR/WHITE (CLR/WHITE); Pregu Control Bar Appear? YES (CONTROL BAR); Protein, Urine (Dipstick) 50 mg/dL (Neg-Trace); RBC/HPF Greater than 50 HPF (0-3); Specific Gravity 1.023 (1.002-1.036); Specific Gravity, Urine 1.023 (1.002-1.036); Urobilinogen Normal mg/dL (Less than 2); WBC/HPF Greater than 50 HPF (0-3)
[2020-06-18 16:17] LABS: Bacteria/HPF 1+ HPF (None Seen)
== END 2020-06-18 16:43 | disposition home or self-care (01) ==
LOC: ERS 15:01
DX: N30.00 Acute cystitis without hematuria (principal); R11.2 Nausea with vomiting, unspecified; J45.909 Unspecified asthma, uncomplicated; G40.909 Epilepsy, unspecified, not intractable, without status epilepticus; Z79.899 Other long term (current) drug therapy
CPT/HCPCS: 81003; 81015; 81025; 87086; 99284; Q0162

== ENCOUNTER 2021-04-11 09:35 | Emergency (ER) | payer OTHER, MEDICAID ==
[2021-04-11] MEDS ORDERED: Ketorolac Tromethamine 30 MG/ML VIAL ONE (09:52)
== END 2021-04-11 11:10 | disposition home or self-care (01) ==
LOC: ERS 09:35
DX: S83.91XA Sprain of unspecified site of right knee, initial encounter (principal); M25.571 Pain in right ankle and joints of right foot; M25.471 Effusion, right ankle; J45.909 Unspecified asthma, uncomplicated; W19.XXXA Unspecified fall, initial encounter; Y92.838 Other recreation area as the place of occurrence of the external cause; Z79.899 Other long term (current) drug therapy
CPT/HCPCS: J1885

== ENCOUNTER 2021-11-30 11:35 | Emergency (ER) | payer MEDICAID ==
[2021-11-30 13:12] LABS: Bilirubin Negative (Negative); Blood, Urine Negative (Negative); Clarity Clear (Clear); Glucose, Urine (Dipstick) Normal (Negative); Ketone, Urine Negative (Negative); Leukocyte 250 Leu/uL (Negative); Nitrite Negative (Negative); Protein, Urine (Dipstick) 20 mg/dL (Neg-Trace); RBC/HPF 0-3 HPF (0-3); Specific Gravity, Urine 1.032 (1.002-1.036); pH, Urine 6.5 (5.0-9.0)
[2021-11-30 13:13] LABS: Bacteria/HPF 1+ HPF (None Seen); Pregnancy Test - Urine (BHCG) Negative (Negative); Pregu Control Background? CLEAR/WHITE (CLR/WHITE); Pregu Control Bar Appear? YES (CONTROL BAR); Specific Gravity 1.032 (1.002-1.036)
[2021-11-30] MEDS ORDERED: Lidocaine 2% PF 5 ML VIAL ONE (15:41)
== END 2021-11-30 16:35 | disposition home or self-care (01) ==
LOC: ERS 11:35
DX: N75.1 Abscess of Bartholin's gland (principal); N39.0 Urinary tract infection, site not specified; J45.909 Unspecified asthma, uncomplicated
CPT/HCPCS: 56405; 81003; 81015; 81025; J2001

== ENCOUNTER 2021-12-01 18:02 | Emergency (ER) | payer MEDICAID, OTHER ==
[2021-12-01] MEDS ORDERED: Lidocaine 1% PF 5 ML VIAL ONE (20:13)
[2021-12-01] MEDS ORDERED: Ketorolac Tromethamine 30 MG/ML VIAL ONE (20:25)
[2021-12-01] MEDS ORDERED: Ibuprofen 200 MG TAB ONE (20:37)
== END 2021-12-01 22:32 | disposition home or self-care (01) ==
LOC: ERS 18:02
DX: N75.1 Abscess of Bartholin's gland (principal)
CPT/HCPCS: 56405; 87070; 87205; J1885

== ENCOUNTER 2021-12-26 16:47 | Emergency (ER) | payer MEDICAID ==
[2021-12-26] MEDS ORDERED: Lidocaine 1% PF 5 ML VIAL ONE (17:06)
== END 2021-12-26 17:38 | disposition home or self-care (01) ==
LOC: ERS 16:47
DX: M65.4 Radial styloid tenosynovitis [de Quervain] (principal)
CPT/HCPCS: 56420

== ENCOUNTER 2022-02-15 12:08 | Emergency (ER) | payer MEDICAID ==
[2022-02-15] MEDS ORDERED: Albuterol 200 PUFF (6.7GM INHALER) ONE (16:06)
[2022-02-15] MEDS ORDERED: Lidocaine 1% PF 5 ML VIAL ONE (16:07)
== END 2022-02-15 16:39 | disposition home or self-care (01) ==
LOC: ERS 12:08
DX: N75.0 Cyst of Bartholin's gland (principal); J45.909 Unspecified asthma, uncomplicated
CPT/HCPCS: 56420; 71045

== ENCOUNTER 2022-05-25 09:26 | Emergency (ER) | payer MEDICAID, SELFPAY | END 2022-05-25 11:23 | disposition home or self-care (01) | LOC: ERS 09:26 | DX: N75.1 Abscess of Bartholin's gland (principal) | CPT/HCPCS: 99282 ==

== ENCOUNTER 2022-08-10 14:06 | Emergency (ER) | payer MEDICAID, OTHER | END 2022-08-10 15:00 | disposition home or self-care (01) | LOC: ERS 14:06 | DX: N75.1 Abscess of Bartholin's gland (principal) | CPT/HCPCS: 99282 ==

== ENCOUNTER 2023-01-31 18:01 | Emergency (ER) | payer OTHER, SELFPAY ==
[2023-01-31] MEDS ORDERED: Ibuprofen 200 MG TAB ONE (18:44)
[2023-01-31] MEDS ORDERED: Acetaminophen 500 MG TAB ONE (18:44)
== END 2023-01-31 20:17 | disposition home or self-care (01) ==
LOC: ERS 18:01
DX: S62.637A Displaced fracture of distal phalanx of left little finger, initial encounter for closed fracture (principal); J45.909 Unspecified asthma, uncomplicated; W23.1XXA Caught, crushed, jammed, or pinched between stationary objects, initial encounter

== ENCOUNTER 2023-06-28 22:14 | Emergency (ER) | payer SELFPAY ==
[2023-06-29] MEDS ORDERED: Lidocaine 1% (PF) 30 ML VIAL ONE (00:47)
== END 2023-06-29 02:22 | disposition home or self-care (01) ==
LOC: ERS 22:14
DX: N75.1 Abscess of Bartholin's gland (principal)
CPT/HCPCS: 10060; 87070; 87205; J2001

== ENCOUNTER 2024-10-04 12:52 | Emergency (ER) | payer OTHER, SELFPAY ==
[2024-10-04 14:27] LABS: Pregnancy Test - Urine (BHCG) Negative (Negative); Pregu Control Background? CLEAR/WHITE (CLR/WHITE); Pregu Control Bar Appear? YES (CONTROL BAR)
[2024-10-04] MEDS ORDERED: Ketorolac Tromethamine 30 MG (1 mL) VIAL ONE (14:47)
[2024-10-04] MEDS ORDERED: Cyclobenzaprine 10 MG TAB ONE (14:47)
== END 2024-10-04 15:21 ==
LOC: ERS 12:52
DX: S13.9XXA Sprain of joints and ligaments of unspecified parts of neck, initial encounter (principal); V89.2XXA Person injured in unspecified motor-vehicle accident, traffic, initial encounter; Y93.89 Activity, other specified; Y92.488 Other paved roadways as the place of occurrence of the external cause
CPT/HCPCS: 70450; 72125; 72128; 81025; 96372; J1885